=== PATIENT | male | born 1990 | race Caucasian/White ===

== ENCOUNTER → 2018-07-31 | Emergency (ER) | payer OTHER ==
[~2018-07-31] VITALS: Ht 182.9 cm; Wt 90.7 kg
[~2018-07-31] MED LIST: ACETAMINOPHEN 325 MG TABLET PO ONE; ACETAMINOPHEN ES 500 MG TABLET ONE; IBUPROFEN 600 MG TABLET PO ONE; IV NS 0.9% 1,000 ML BAG IV ONE; ONDANSETRON HCL/PF 4 MG/2 ML VIAL IVP ONE; ONDANSETRON HCL/PF 4 MG/2 ML VIAL ONE
[2018-07-31 17:39] VITALS: BP 115/53
== END | disposition home or self-care (01) ==
LOC: ER 15:43
DX: R11.2 Nausea with vomiting, unspecified (principal); R50.9 Fever, unspecified
CPT/HCPCS: 96374; 99284; A4606; J2405; J7030; Z7610

== ENCOUNTER 2018-08-02 12:25 | Emergency (ER) | payer SELFPAY ==
[~2018-08-02] VITALS: Ht 177.8 cm; Wt 65.8 kg
[2018-08-02 12:54] LABS: BASOPHILS # (AUTO) 0.2 /CMM (0.0-0.2); BASOPHILS % (AUTO) 2.1 % (0.0-2.0); EOSINOPHILS % (AUTO) 4.9 % (0.0-6.0); HEMATOCRIT 44 % (39-51); HEMOGLOBIN 14.6 g/dL (13.5-17.5); LYMPHOCYTES # (AUTO) 1.4 /CMM (0.8-4.8); LYMPHOCYTES % (AUTO) 14.8 % (20.0-44.0); MEAN CORPUSCULAR HEMOGLOBIN 30 PG (26.0-33.0); MEAN CORPUSCULAR HGB CONC 33 g/dl (31.0-36.0); MEAN CORPUSCULAR VOLUME 90 fL (80-96); MONOCYTES # (AUTO) 1.1 /CMM (0.1-1.30); MONOCYTES % (AUTO) 11.8 % (2.0-12.0); NEUTROPHILS % (AUTO) 66.4 % (43.0-81.0); PLATELET COUNT (AUTO) 179 /CMM (150-450); RDW COEFFICIENT OF VARIATION 11.9 (11.5-15.0); RED BLOOD CELL COUNT(AUTO) 4.94 MIL/uL (4.5-6.0); WHITE BLOOD COUNT (AUTO) 9.1 K/uL (4.3-11.0)
[2018-08-02] MEDS ORDERED: MAG HYDROX/AL HYDROX/SIMETH 30 ML UDC ONE (12:55)
[2018-08-02] MEDS ORDERED: MAG HYDROX/AL HYDROX/SIMETH 30 ML UDC PO ONE (13:00)
[2018-08-02] MEDS ORDERED: HYOSCYAMINE SULFATE 0.125 MG TAB.SUBL SL PRN (13:00)
--- NOTE | 2018-08-02 13:10 | NUR ---
US TECH AT BS.
[2018-08-02 13:17] LABS: CALCIUM, SERUM 8.8 mg/dL (8.5-10.1); CREATININE 1.1 mg/dL (0.6-1.3); POTASSIUM 3.7 mmol/L (3.5-5.1)
[2018-08-02 13:23] LABS: ALBUMIN 3.7 g/dL (3.4-5.0); BILIRUBIN,DIRECT 0.1 mg/dL (0.0-0.2); BILIRUBIN,TOTAL 0.5 mg/dL (0.2-1.0); TOTAL PROTEIN, SERUM 3.7 g/dL (6.4-8.2)
--- NOTE | 2018-08-02 13:58 | NUR ---
Patient discharged to home in stable condition. Written and verbal after care instructions given. Patient verbalizes understanding of instruction.
[2018-08-02 14:00] VITALS: BP 138/77
== END 2018-08-02 14:01 | disposition home or self-care (01) ==
LOC: ER 12:29
DX: R10.13 Epigastric pain (principal); R11.2 Nausea with vomiting, unspecified; J02.8 Acute pharyngitis due to other specified organisms; J45.909 Unspecified asthma, uncomplicated
CPT/HCPCS: 36415; 76705; 80048; 80076; 83690; 85025; 99285; A4606; Z7610

== ENCOUNTER 2019-03-24 03:10 | Emergency (ER) | payer SELFPAY ==
[~2019-03-24] VITALS: Ht 182.9 cm; Wt 86.2 kg
[~2019-03-24 03:10] MED LIST changes: -ACETAMINOPHEN 325 MG TABLET PO ONE; -ACETAMINOPHEN ES 500 MG TABLET ONE; -IBUPROFEN 600 MG TABLET PO ONE; -IV NS 0.9% 1,000 ML BAG IV ONE; -ONDANSETRON HCL/PF 4 MG/2 ML VIAL IVP ONE; -ONDANSETRON HCL/PF 4 MG/2 ML VIAL ONE; +PANT40TA2 PO; +SUCR1TAB31 PO
--- NOTE | 2019-03-24 03:30 | NUR ---
TO BED 10 AMBULATORY C/O RLQ ABDOMINAL PAIN X4 DAYS. PT AAOX4 NO ACUTE DISTRESS NOTED, RESP EVEN AND UNLABORED. PENDING ER MD DIEGO.
--- NOTE | 2019-03-24 03:41 | NUR ---
PT MEDICATED BY RN PER ER MD ORDER.
[2019-03-24] MEDS ORDERED: ONDANSETRON HCL/PF 4 MG/2 ML VIAL ONE (03:43)
[2019-03-24 03:48] LABS: BASOPHILS # (AUTO) 0.1 /CMM (0.0-0.2); BASOPHILS % (AUTO) 0.7 % (0.0-2.0); EOSINOPHILS % (AUTO) 7.9 % (0.0-6.0); HEMATOCRIT 46 % (39-51); LYMPHOCYTES # (AUTO) 2.1 /CMM (0.8-4.8); LYMPHOCYTES % (AUTO) 23.8 % (20.0-44.0); MEAN CORPUSCULAR HGB CONC 35 g/dl (31.0-36.0); MEAN CORPUSCULAR VOLUME 91 fL (80-96); MONOCYTES # (AUTO) 0.7 /CMM (0.1-1.30); MONOCYTES % (AUTO) 8.1 % (2.0-12.0); NEUTROPHILS # (AUTO) 5.3 /CMM (1.8-8.9); NEUTROPHILS % (AUTO) 59.5 % (43.0-81.0); PLATELET COUNT (AUTO) 204 /CMM (150-450); RED BLOOD CELL COUNT(AUTO) 5.06 MIL/uL (4.5-6.0)
[2019-03-24 03:50] LABS: APPEARANCE,URINE CLEAR (CLEAR); BILIRUBIN,URINE NEGATIVE (NEGATIVE); BLOOD, URINE 2+ Ery/uL (NEGATIVE); COLOR,URINE YELLOW (YELLOW); KETONES,URINE NEGATIVE (NEGATIVE); LEUKOCYTE ESTERASE ,URINE NEGATIVE (NEGATIVE); NITRITE, URINE NEGATIVE (NEGATIVE); PROTEIN,URINE NEGATIVE (NEGATIVE); UGLUCOSE NEGATIVE (NEGATIVE); UROBILINOGEN,URINE 0.2 EU/dL (0.2)
--- NOTE | 2019-03-24 03:52 | NUR ---
4MG ZOFRAN IVP GIVEN VERBAL ORDERED BY .
[2019-03-24 03:58] LABS: BACTERIA,URINE None seen /HPF (None Seen); SQUAMOUS EPITHELIAL CELL,UR Few /HPF (None Seen); WBC,URINE 0-2 /HPF (0-3)
[2019-03-24 04:00] LABS: CREATININE 2.4 mg/dL (0.6-1.3); POTASSIUM 3.6 mmol/L (3.5-5.1)
[2019-03-24] MEDS ORDERED: IV NS 0.9% 500 ML BAG IV ONE (04:00)
[2019-03-24 04:01] LABS: ALBUMIN 4.4 g/dL (3.4-5.0); BILIRUBIN,DIRECT 0.1 mg/dL (0.0-0.2); BILIRUBIN,TOTAL 0.6 mg/dL (0.2-1.0); TOTAL PROTEIN, SERUM 7.7 g/dL (6.4-8.2)
[2019-03-24 04:21] LABS: CALCIUM, SERUM 9.4 mg/dL (8.5-10.1)
--- NOTE | 2019-03-24 06:03 | NUR ---
Patient discharged to home in stable condition. Written and verbal after care instructions given. Patient verbalizes understanding of instruction. IV removed. Catheter intact and site benign. Pressure and 4x4 applied to site. No bleeding noted. Pt ambulatory with a steady gait
[2019-03-24 06:04] VITALS: BP 127/84
== END 2019-03-24 06:05 | disposition home or self-care (01) ==
LOC: ER 03:17
DX: R10.31 Right lower quadrant pain (principal); Z79.899 Other long term (current) drug therapy
CPT/HCPCS: 36415; 74176; 80048; 80076; 81001; 83690; 85025; 99284; J2405; J7040; 81000-TC